=== PATIENT | female | born 1975 ===

== ENCOUNTER 2021-02-27 03:44 | Emergency (ER) | payer SELFPAY ==
[2021-02-27] MEDS ORDERED: Lidocaine 1% 30 ML SDV INJECT ONE (03:55)
[2021-02-27] MEDS ORDERED: Bacitracin Oint 1 GM U/D Packet TOP ONE (03:55)
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
[2021-02-27 04:28] LABS: ANION GAP 19.5 mEq/L (7-13); CHLORIDE,CL 102 mmol/L (98-107); SODIUM,NA 139 mmol/L (136-145)
== END 2021-02-27 05:00 ==
LOC: EDBD → DL.ED 03:44
DX: S60.812A Abrasion of left wrist, initial encounter (principal); S60.811A Abrasion of right wrist, initial encounter; F10.10 Alcohol abuse, uncomplicated; Y90.6 Blood alcohol level of 120-199 mg/100 ml; Y04.0XXA Assault by unarmed brawl or fight, initial encounter
CPT/HCPCS: 36415; 80053; 80307; 85025; 99284